=== PATIENT | male | born 1995 | race Caucasian/White ===

== ENCOUNTER 2020-02-28 06:28 | Outpatient (REF) | payer OTHER, SELFPAY ==
[2020-02-28 07:20] LABS: MANUAL DIFF FLAG NO
[2020-02-28 07:22] LABS: Basophils Percent Auto 1.1 % (0-2); Eosinophils Absolute Auto 0.1 X10*3/uL (0.0-0.4); Eosinophils Percent Auto 3.2 % (0-4); Hematocrit 44.9 % (42-52); Imm Gran Abs Auto 0.01 X10*3/uL (0.00-0.03); Imm Gran Pct Auto 0.3 % (0.0-0.4); Lymphocytes Absolute Auto 1.7 X10*3/uL (1.2-4.9); Lymphocytes Percent Auto 44.9 % (20-40); Mean Corpuscular HGB Conc 33.4 g/dl (31.0-36.0); Mean Corpuscular Hemoglobin 29.9 pg (27.0-33.0); Mean Corpuscular Volume 89.6 fL (80-98); Monocytes Absolute Auto 0.4 X10*3/uL (0.1-1.2); Monocytes Percent Auto 9.2 % (2-11); Neutrophils Absolute Auto 1.6 X10*3/uL (2.0-8.3); Neutrophils Percent Auto 41.3 % (45-73); Platelet Count 158 X10*3/uL (160-400); Red Blood Count 5.01 X10*6/uL (4.60-5.80); Red Cell Distribution Width 12.3 % (11.0-16.0); White Blood Count 3.8 X10*3/uL (4.8-10.8)
[2020-02-28 07:41] LABS: Alanine Aminotransferase 38 U/L (0-40); Albumin Level 4.2 g/dL (3.5-5.0); Alkaline Phosphatase 80 U/L (39-117); Anion Gap 12 (12-20); Aspartate Amino Transferase 22 U/L (5-37); Bilirubin Total 0.8 mg/dL (0.0-1.0); Blood Urea Nitrogen 17 mg/dL (9-16); Carbon Dioxide 28 mmol/L (22-29); Chloride 103 mmol/L (96-108); Cholesterol 226 mg/dL; Estimated Glomerular Filt Rate > 60; Glucose Fasting 87 mg/dL (60-99); HDL Cholesterol 69 mg/dL; LDL Cholesterol Calculated 145 mg/dl; Potassium 3.6 mmol/l (3.3-5.1); Sodium 139 mmol/L (135-145); Total Protein 7.1 g/dL (6.5-8.0); Triglycerides 60 mg/dL
[2020-02-28 07:55] LABS: TSH reflex Free T4 2.45 mIU/mL (0.32-4.0)
== END 2020-02-28 06:29 | disposition home or self-care (01) ==
LOC: HO.LAB 06:28
PROVIDERS: PCP Internal Medicine; Visit Provider Physician Assistant
DX: E78.9 Disorder of lipoprotein metabolism, unspecified (principal)
CPT/HCPCS: 36415; 80053; 80061; 84443; 85025

== ENCOUNTER 2021-02-14 15:12 | Outpatient (REF) | payer OTHER, SELFPAY ==
[2021-02-14 15:24] LABS: TSH reflex Free T4 1.28 uIU/mL (0.32-4.0)
== END 2021-02-14 15:13 | disposition home or self-care (01) ==
LOC: HO.LAB 15:12
PROVIDERS: Visit Provider Physician Assistant
DX: Z02.1 Encounter for pre-employment examination (principal); E78.9 Disorder of lipoprotein metabolism, unspecified
CPT/HCPCS: 36415; 84443

== ENCOUNTER 2022-09-17 08:04 | Outpatient (AMB) | payer OTHER, SELFPAY ==
[2022-09-17 08:16] VITALS: BP 122/70; PULSE 46; O2SAT 97; BMI 29.3
--- NOTE | 2022-09-17 08:16 | MHC.PC.OV ---
Vital Signs 09/17/22 08:16 Height 5 ft 11 in Weight 210 lb BMI 29.3 BP 122/70 Blood Pressure Location Lt brachial Position Sitting Pulse 46 L Pulse Source Pulse Oximeter Pulse Oximetry (%) 97 Oxygen Delivery Method Room Air Intake Visit Reasons: physical Allergies No Known Allergies Allergy (Verified 09/17/22 08:23) Medication List - Last Reconciled 09/17/22 by Alli Rice PA-C No Known Home Meds Tobacco use date assessed: 09/17/22 Dental Screening Dental Screen Date: 09/17/22 Did you have a dental visit in the last 12 months?: Yes Did you have a dental problem in the last 6 months where you did not have access to dental care?: No Was dental information given to patient?: Patient has dentist HPI physical HPI Details Asif is a 27year-old male here today for annual physical. ? Patient has no past medical history of? borderline cholesterol in March 2019. ?patient does show report he has a family history of high cholesterol.. Concern--> reports getting a work physical at work [employer] and was reported to have trace RBCs in urinalysis and a slightly low spirometry reading. Vaccine: UTD with Td, , UTD with COVID PFSH Surgical History No pertinent past surgical history Family History Father Hypertension Mother No problems noted. Maternal Uncle Prostate cancer Testicular cancer Social History (Updated 09/17/22 @ 08:27 by Alli Rcie PA-C) Housing: House Alcohol intake: current Alcohol intake frequency: holidays/special occasions only Patient Tobacco Use Status: Never used Tobacco Tobacco use type: Cigarette e-Cigarette/Vaping Use: Never Used Second Hand Smoke Exposure: No service: No Current occupational status: employed Current occupation: [email or web address] Cognitive needs: No Hearing needs: No Vision needs: No Questionnaire PHQ-9 Over the last 2 weeks, how often have you been bothered by any of the following problems? 1. Little interest or pleasure in doing things: not at all 2. Feeling down, depressed, or hopeless: not at all 3. Trouble falling or staying asleep, or sleeping too much: not at all 4. Feeling tired or having little energy: not at all 5. Poor appetite or overeating: not at all 6. Feeling bad about yourself - or that you are a failure or have let yourself or your family down: not at all 7. Trouble concentrating on things, such as reading the newspaper or watching television: not at all 8. Moving or speaking so slowly that other people could have noticed. Or the opposite - being so fidgety or restless that you have been moving around a lot more than usual: not at all 9. Thoughts that you would be better off or of hurting yourself in some way: not at all Total score: 0 Depression Screening Interpretation: Negative 53361 - PHQ-9 Billing: Yes Source: Developed by Drs. Amilcar Núñez, Cindy Hernández, Vik Mederos and colleagues, with an educational mari from [employer]. Thrive Questionnaire Date Thrive assessed: 09/17/22 I am a: Patient What is your living situation today?: I have a steady place to live Within the past 12 months, did the food you bought not last and you didn't have the money to get more?: Never true Within the past 12 months, did you worry whether your food would run out before you got money to buy more?: Never true Do you have trouble paying for medicines?: No Do you have trouble getting transportation to medical appointments?: No Do you have trouble paying your heating and electricity bill?: No Do you have trouble taking care of your child, family member or friend?: No Do you have trouble with day-to-day activities such as bathing, preparing meals, shopping, managing finances, etc.?: No Are you currently unemployed and looking for a job?: No Are you interested in more education?: No Currently or been in a relationship where the following occur: no concerns reported AUDIT C Alcohol Use Questionnaire (AUDIT-C) 1. How often do you have a drink containing alcohol?: Never Total Score: 0 PRIYA-7 AMB Questionnaire PRIYA-7 Date PRIYA - 7 assessed: 09/17/22 Feeling nervous, anxious, or on edge: 0 = Not at all Not being able to stop or control worryin = Not at all Worrying too much about different things: 0 = Not at all Trouble relaxin = Not at all Being so restless that it is hard to sit still: 0 = Not at all Becoming easily annoyed or irritable: 0 = Not at all Feeling afraid as if something awful might happen: 0 = Not at all Total PRIYA-7 score (0-4 normal; 5-9 mild; 10-14 moderate; 15-21 severe): 0 Source: Developed by Drs. Amilcar Núñez, Cindy Hernández, Vik Mederos and colleagues, with an educational mari from [employer]. PRIYA-7 Assessment Billing PRIYA-7 Assessment Tool: PRIYA-7 Assessment 44324 Review of Systems Const Denies body aches, Denies chills, Denies excessive sweating, Denies fatigue, Denies fever(s) and Denies headache(s) Eyes Denies blurry vision ENT Denies dysphagia, Denies vertigo, Denies dizziness, Denies headache(s), Denies hearing loss and Denies tinnitus Card Denies chest pain, Denies chest pain with activity, Denies syncope, Denies irregular heart rhythm and Denies dyspnea Resp Denies chest congestion, Denies cough, Denies hemoptysis, Denies dyspnea and Denies wheezing GI Denies abdominal pain, Denies melena, Denies hematochezia, Denies coffee ground emesis, Denies dysphagia, Denies diarrhea, Denies nausea and Denies vomiting Denies difficulty urinating, Denies dysuria, Denies urinary frequency, Denies urinary hesitancy and Denies urinary urgency Musc Denies arthralgias, Denies limited range of motion, Denies muscle cramps and Denies muscle weakness Skin/Breast Denies rash and Denies skin ulcer Neuro Denies Abnormal speech present, Denies confusion, Denies vertigo, Denies dizziness, Denies syncope, Denies headache(s), Denies memory loss and Denies seizure-like activity Psych Denies anxiety, Denies confusion, Denies depression, Denies memory loss, Denies panic attacks and Denies paranoia Endo Denies excessive sweating, Denies fatigue, Denies flushing, Denies polydipsia and Denies polyuria Aller/Immun Denies wheezing Physical exam (Primary Care) Vital Signs: Last Vital Signs Pulse 46 L 09/17/22 08:16 BP 122/70 09/17/22 08:16 Pulse Ox 97 09/17/22 08:16 Oxygen Delivery Method Room Air 09/17/22 08:16 BMI result Body Mass Index 29.3 Tobacco/Smoking Status: Tobacco use Status Tobacco use date assessed 09/17/22 09/17/22 08:21 Patient Tobacco Use Status Never used Tobacco 09/17/22 08:27 Tobacco use type Cigarette 09/17/22 08:27 e-Cigarette/Vaping Use Never Used 09/17/22 08:27 PHQ-9: PHQ-9 Score PHQ-9: Total score 0 09/17/22 08:38 Depression Screening Interpretation: Negative Thrive Assessment: Date of Thrive Assessment Date Thrive assessed 09/17/22 09/17/22 08:21 Currently or been in a relationship where the following occur: no concerns reported Const General: cooperative, comfortable, no acute distress, alert and awake; No confusion Orientation/consciousness: oriented to person, oriented to place, patient oriented x3 and No confusion HENMT Head: Yes normocephalic Ears: external ears normal and TM's normal bilaterally Face and sinus: No sinus tenderness Mouth: Normal oral and palatal mucosa present and tongue normal Teeth and gingiva: dentition normal and gingiva normal Throat: Yes posterior oropharynx normal, Yes tonsils normal and Yes uvula midline Eyes Conjunctivae: conjunctivae normal Sclerae: sclerae normal Pupils: Equal, round and reactive pupils present EOM: EOMs intact bilaterally Direct Ophthalmoscopy: No no photophobia Neck Neck: Yes no lymphadenopathy, No tender and Yes no JVD Thyroid: Thyroid normal Carotids: no bruits Chest Chest palpation & inspection: no tenderness Resp Effort & Inspection: normal respiratory effort, no audible wheezes, not labored and no stridor Auscultation: no crackles, no rales, no rhonchi and no wheezes Cardio Jugular venous distension: no JVD Rate: regular rate, not bradycardic and not tachycardic Rhythm: regular rhythm Bruits: no carotid bruits Peripheral pulses: Peripheral pulses 2+ throughout GI Inspection: Yes normal to inspection, No abdominal wall ecchymosis and No visible herniation Palpation (GI): Soft to palpation, nontender, no guarding, not rigid and No hepatosplenomegaly present Auscultation: normoactive bowel sounds General: Yes no CVA tenderness Back/Spine/Pelvis Back: no CVA tenderness and No back tenderness Cervical Spine: cervical ROM normal Thoracic/Lumbar Spine: thoracic and lumbar spine normal to inspection, straight leg raise negative bilaterally, No thoraco-lumbar ROM limited and No lumbar spinal tenderness Skin Lesions: no lesions Rashes: no rashes Wounds: no wounds Neuro General: oriented to person, oriented to place, patient oriented x3, CN's II-XI intact bilaterally and No confusion Cranial nerves: Yes Equal, round and reactive pupils present and Yes Normal accommodation reflex present Cognition (Neuro): normal cognition Speech: No Abnormal speech present Gait exam (Neuro): Normal gait present Motor exam (neuro): 5/5 motor strength present throughout Extrem Right upper extremity: full ROM; no cyanosis Left upper extremity: full ROM; no cyanosis Right lower extremity: no edema Left lower extremity: no edema Psych Appearance: grossly normal Mental Status: mental status grossly normal Affect: normal affect Attitude: cooperative Thought process: Normal thought process present Assessment and Plan Assessment & Plan (1) Annual physical exam: Code(s): Z00.00 - Encounter for general adult medical examination without abnormal findings (2) Borderline high cholesterol: Code(s): E78.9 - Disorder of lipoprotein metabolism, unspecified Plan: Patient has a history of borderline high cholesterol. Will recheck fasting lipids to ensure appropriate total cholesterol and LDL. (3) Screening for diabetes mellitus (DM): Code(s): Z13.1 - Encounter for screening for diabetes mellitus (4) Microscopic hematuria: Code(s): R31.29 - Other microscopic hematuria Plan: Was found to trace RBCs in urinalysis at [facility] [employer]. Will recheck urinalysis and urine cytology Orders: Orders Lipid Panel Today E78.9 - Disorder of lipoprotein metabolism, unspecified Comprehensive [place]. Panel Fast Today Z13.1 - Encounter for screening for diabetes mellitus UA CC w/rflx Micro + Cult Today R30.0 - Dysuria, R31.29 - Other microscopic hematuria Urine Cytology Today R31.29 - Other microscopic hematuria Coding Level of Care Code Est Pt Prev Care 18-39y(56507) Diagnoses Annual physical exam Z00.00 Borderline high cholesterol E78.9 Screening for diabetes mellitus (DM) Z13.1 Microscopic hematuria R31.29 Additional Codes PRIYA-7 Assessment Billing - PRIYA-7 Assessment Tool: PRIYA-7 Assessment [id number] ([id number])
== END 2022-09-17 08:40 | disposition home or self-care (01) ==
PROVIDERS: Visit Provider Physician Assistant
DX: Z00.00 Encounter for general adult medical examination without abnormal findings (principal); E78.9 Disorder of lipoprotein metabolism, unspecified; Z13.1 Encounter for screening for diabetes mellitus; R31.29 Other microscopic hematuria
CPT/HCPCS: 99395

== ENCOUNTER 2023-01-03 06:53 | Outpatient (REF) | payer OTHER, SELFPAY ==
[2023-01-03 07:50] LABS: Alanine Aminotransferase 45 U/L (0-40); Albumin Level 4.2 g/dL (3.5-5.0); Alkaline Phosphatase 85 U/L (39-117); Anion Gap 12 (12-20); Aspartate Amino Transferase 29 U/L (5-37); Bilirubin Total 0.8 mg/dL (0.0-1.0); Blood Urea Nitrogen 16 mg/dL (9-16); Calcium 9.4 mg/dL (8.4-10.2); Carbon Dioxide 25 mmol/L (22-29); Chloride 105 mmol/L (96-108); Cholesterol 193 mg/dL (<200); Estimated Glomerular Filt Rate > 60; Glucose Fasting 92 mg/dL (60-99); HDL Cholesterol 61 mg/dL (>40); LDL Cholesterol Calculated 126 mg/dL (<100); Potassium 3.7 mmol/L (3.3-5.1); Sodium 138 mmol/L (135-145); Total Protein 7.3 g/dL (6.5-8.0); Triglycerides 34 mg/dL (<150)
[2023-01-03 08:15] LABS: Urine Cytology See Pathology rpt
[2023-01-03 08:28] LABS: Appearance Urine Clear; Color Urine Yellow; Glucose Urine UA Negative (Negative); Leukocyte Esterase Urine Negative (Negative); Nitrite Urine Negative (Negative); Urine Blood Negative (Negative); Urine Ketones Negative (Negative); Urine Protein Negative (Neg-Trace)
== END 2023-01-03 06:54 | disposition home or self-care (01) ==
LOC: HO.LAB 06:53
PROVIDERS: PCP Physician Assistant; Visit Provider Physician Assistant
DX: Z13.1 Encounter for screening for diabetes mellitus (principal); R30.0 Dysuria; R31.29 Other microscopic hematuria; E78.9 Disorder of lipoprotein metabolism, unspecified
CPT/HCPCS: 36415; 80053; 80061; 81003; 88112

== ENCOUNTER 2023-09-22 07:53 | Outpatient (AMB) | payer OTHER, SELFPAY ==
--- NOTE | 2023-09-22 07:54 | MHC.PC.OV ---
Vital Signs 09/22/23 07:55 Height 5 ft 11 in Weight 210 lb BMI 29.3 BP 108/70 Blood Pressure Location Lt brachial Position Sitting Pulse 47 L Pulse Source Pulse Oximeter Pulse Oximetry (%) 99 Oxygen Delivery Method Room Air Intake Visit Reasons: Annual Allergies No Known Allergies Allergy (Verified 09/22/23 08:02) Medication List - Last Reconciled 09/22/23 by Alli Rice PA-C No Known Home Meds Tobacco use date assessed: 09/22/23 Dental Screening Dental Screen Date: 09/22/23 Did you have a dental visit in the last 12 months?: Yes Did you have a dental problem in the last 6 months where you did not have access to dental care?: No Was dental information given to patient?: Patient has dentist HPI Annual HPI Details Asif is a 28 year-old male here today for annual physical. ? Patient has no past medical history of? borderline cholesterol in March 2019. Recently had a new baby girl and now has a father of 2. ?History of borderline high cholesterol: patient does show report he has a family history of high cholesterol.. 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 He is willing to try topical steroid. Vaccine: UTD with Td, , UTD with COVID Laboratory Tests 04/08/19 02/28/20 02/14/21 06:15 06:38 07:54 Cholesterol 225 226 TSH 1.28 01/03/23 07:04 Cholesterol 193 TSH PFSH Surgical History No pertinent past surgical history Family History Father Hypertension Mother No problems noted. Maternal Uncle Prostate cancer Testicular cancer Social History Housing: House Alcohol intake: current Alcohol intake frequency: holidays/special occasions only Patient Tobacco Use Status: Never used Tobacco Tobacco use type: Cigarette e-Cigarette/Vaping Use: Never Used Second Hand Smoke Exposure: No service: No Current occupational status: employed Current occupation: [employer]- [employer] Cognitive needs: No Hearing needs: No Vision needs: No Questionnaire PHQ-9 Over the last 2 weeks, how often have you been bothered by any of the following problems? 1. Little interest or pleasure in doing things: not at all 2. Feeling down, depressed, or hopeless: not at all 3. Trouble falling or staying asleep, or sleeping too much: not at all 4. Feeling tired or having little energy: not at all 5. Poor appetite or overeating: not at all 6. Feeling bad about yourself - or that you are a failure or have let yourself or your family down: not at all 7. Trouble concentrating on things, such as reading the newspaper or watching television: not at all 8. Moving or speaking so slowly that other people could have noticed. Or the opposite - being so fidgety or restless that you have been moving around a lot more than usual: not at all 9. Thoughts that you would be better off or of hurting yourself in some way: not at all Total score: 0 Depression Screening Interpretation: Negative Depression Screening Done: Yes 34994 - PHQ-9 Billing: Yes Source: Developed by Drs. Amilcar Núñez, Cindy Hernández, Vik Mederos and colleagues, with an educational mari from [employer]now [employer]). Thrive Questionnaire Date Thrive assessed: 09/22/23 I am a: Patient What is your living situation today?: I have a steady place to live Within the past 12 months, did the food you bought not last and you didn't have the money to get more?: Never true Within the past 12 months, did you worry whether your food would run out before you got money to buy more?: Never true Do you have trouble paying for medicines?: No Do you have trouble getting transportation to medical appointments?: No Do you have trouble paying your heating and electricity bill?: No Do you have trouble taking care of your child, family member or friend?: No Do you have trouble with day-to-day activities such as bathing, preparing meals, shopping, managing finances, etc.?: No Are you currently unemployed and looking for a job?: No Are you interested in more education?: No Currently or been in a relationship where the following occur: No concerns reported THRIVE Score: 0 AUDIT C Alcohol Use Questionnaire (AUDIT-C) 1. How often do you have a drink containing alcohol?: Never Total Score: 0 PRIYA-7 AMB Questionnaire PRIYA-7 Date PRIYA - 7 assessed: 09/22/23 Feeling nervous, anxious, or on edge: 0 = Not at all Not being able to stop or control worryin = Not at all Worrying too much about different things: 0 = Not at all Trouble relaxin = Not at all Being so restless that it is hard to sit still: 0 = Not at all Becoming easily annoyed or irritable: 0 = Not at all Feeling afraid as if something awful might happen: 0 = Not at all Total PRIYA-7 score (0-4 normal; 5-9 mild; 10-14 moderate; 15-21 severe): 0 Source: Developed by Drs. Amilcar Núñez, Cindy Hernández, Vik Mederos and colleagues, with an educational mari from [employer] (now [employer]). PRIYA-7 Assessment Billing PRIYA-7 Assessment Tool: PRIYA-7 Assessment 78799 Review of Systems Const Denies body aches, Denies chills, Denies excessive sweating, Denies fatigue, Denies fever(s) and Denies headache(s) Eyes Denies blurry vision ENT Denies dysphagia, Denies vertigo, Denies dizziness, Denies headache(s), Denies hearing loss and Denies tinnitus Card Denies chest pain, Denies chest pain with activity, Denies syncope, Denies irregular heart rhythm and Denies dyspnea Resp Denies chest congestion, Denies cough, Denies hemoptysis, Denies dyspnea and Denies wheezing GI Denies abdominal pain, Denies melena, Denies hematochezia, Denies coffee ground emesis, Denies dysphagia, Denies diarrhea, Denies nausea and Denies vomiting Denies difficulty urinating, Denies dysuria, Denies urinary frequency, Denies urinary hesitancy and Denies urinary urgency Musc Denies arthralgias, Denies limited range of motion, Denies muscle cramps and Denies muscle weakness Skin/Breast Denies rash and Denies skin ulcer Neuro Denies Abnormal speech present, Denies confusion, Denies vertigo, Denies dizziness, Denies syncope, Denies headache(s), Denies memory loss and Denies seizure-like activity Psych Denies anxiety, Denies confusion, Denies depression, Denies memory loss, Denies panic attacks and Denies paranoia Endo Denies excessive sweating, Denies fatigue, Denies flushing, Denies polydipsia and Denies polyuria Aller/Immun Denies wheezing Physical exam (Primary Care) Vital Signs: Last Vital Signs Pulse 47 L 09/22/23 07:55 BP 108/70 09/22/23 07:55 Pulse Ox 99 09/22/23 07:55 Oxygen Delivery Method Room Air 09/22/23 07:55 BMI result Body Mass Index 29.3 Tobacco/Smoking Status: Tobacco use Status Tobacco use date assessed 09/22/23 09/22/23 08:01 Patient Tobacco Use Status Never used Tobacco 09/22/23 08:01 Tobacco use type Cigarette 09/22/23 08:01 e-Cigarette/Vaping Use Never Used 09/22/23 08:01 PHQ-9: PHQ-9 Score PHQ-9: Total score 0 09/22/23 08:06 Depression Screening Interpretation: Negative Thrive Assessment: Date of Thrive Assessment Date Thrive assessed 09/22/23 09/22/23 08:01 Currently or been in a relationship where the following occur: No concerns reported Const General: cooperative, comfortable, no acute distress, alert and awake; No confusion Orientation/consciousness: oriented to person, oriented to place, patient oriented x3 and No confusion HENMT Head: Yes normocephalic Ears: external ears normal and TM's normal bilaterally Face and sinus: No sinus tenderness Mouth: Normal oral and palatal mucosa present and tongue normal Teeth and gingiva: dentition normal and gingiva normal Throat: Yes posterior oropharynx normal, Yes tonsils normal and Yes uvula midline Eyes Conjunctivae: conjunctivae normal Sclerae: sclerae normal Pupils: Equal, round and reactive pupils present EOM: EOMs intact bilaterally Direct Ophthalmoscopy: No no photophobia Neck Neck: Yes no lymphadenopathy, No tender and Yes no JVD Thyroid: Thyroid normal Carotids: no bruits Chest Chest palpation & inspection: no tenderness Resp Effort & Inspection: normal respiratory effort, no audible wheezes, not labored and no stridor Auscultation: no crackles, no rales, no rhonchi and no wheezes Cardio Jugular venous distension: no JVD Rate: regular rate, not bradycardic and not tachycardic Rhythm: regular rhythm Bruits: no carotid bruits Peripheral pulses: Peripheral pulses 2+ throughout GI Inspection: Yes normal to inspection, No abdominal wall ecchymosis and No visible herniation Palpation (GI): Soft to palpation, nontender, no guarding, not rigid and No hepatosplenomegaly present Auscultation: normoactive bowel sounds General: Yes no CVA tenderness Back/Spine/Pelvis Back: no CVA tenderness and No back tenderness Cervical Spine: cervical ROM normal Thoracic/Lumbar Spine: thoracic and lumbar spine normal to inspection, straight leg raise negative bilaterally, No thoraco-lumbar ROM limited and No lumbar spinal tenderness Skin Lesions: no lesions Rashes: no rashes Wounds: no wounds Neuro General: oriented to person, oriented to place, patient oriented x3, CN's II-XI intact bilaterally and No confusion Cranial nerves: Yes Equal, round and reactive pupils present and Yes Normal accommodation reflex present Cognition (Neuro): normal cognition Speech: No Abnormal speech present Gait exam (Neuro): Normal gait present Motor exam (neuro): 5/5 motor strength present throughout Extrem Right upper extremity: full ROM; no cyanosis Left upper extremity: full ROM; no cyanosis Right lower extremity: no edema Left lower extremity: no edema Psych Appearance: grossly normal Mental Status: mental status grossly normal Affect: normal affect Attitude: cooperative Thought process: Normal thought process present Assessment and Plan Assessment & Plan (1) Annual physical exam: Code(s): Z00.00 - Encounter for general adult medical examination without abnormal findings (2) Borderline high cholesterol: Code(s): E78.9 - Disorder of lipoprotein metabolism, unspecified Plan: Patient has a history of borderline high cholesterol. Will recheck fasting lipids to ensure appropriate total cholesterol and LDL. (3) Screening for diabetes mellitus (DM): Code(s): Z13.1 - Encounter for screening for diabetes mellitus (4) Microscopic hematuria: Code(s): R31.29 - Other microscopic hematuria Plan: Was found to trace RBCs in urinalysis at work [employer]. 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 Will supply him with topical triamcinolone ointment Orders: Orders Comprehensive [place]. Panel Fast Today Z13.1 - Encounter for screening for diabetes mellitus UA CC w/rflx Micro + Cult Today R30.0 - Dysuria, R31.29 - Other microscopic hematuria Lipid Panel Today E78.9 - Disorder of lipoprotein metabolism, unspecified Complete Blood Count no Diff Today E78.9 - Disorder of lipoprotein metabolism, unspecified Urine Cytology Today R31.29 - Other microscopic hematuria Medications: New triamcinolone acetonide 0.1% 1 appl topical DAILY 30 grams 1RF 15 days Q82.4 - Ectodermal dysplasia (anhidrotic) Coding Level of Care Code Est Pt Prev Care 18-39y(73488) Diagnoses Annual physical exam Z00.00 Borderline high cholesterol E78.9 Screening for diabetes mellitus (DM) Z13.1 Microscopic hematuria R31.29 Hidrotic ectodermal dysplasia Q82.4 Additional Codes PRIYA-7 Assessment Billing - PRIYA-7 Assessment Tool: PRIYA-7 Assessment 51585 ([id number])
[2023-09-22 07:55] VITALS: BP 108/70; PULSE 47; O2SAT 99; BMI 29.3
== END 2023-09-22 08:21 | disposition home or self-care (01) ==
PROVIDERS: PCP Internal Medicine; Visit Provider Physician Assistant
DX: Z00.00 Encounter for general adult medical examination without abnormal findings (principal); E78.9 Disorder of lipoprotein metabolism, unspecified; Z13.1 Encounter for screening for diabetes mellitus; R31.29 Other microscopic hematuria; Q82.4 Ectodermal dysplasia (anhidrotic)
CPT/HCPCS: 99395

== ENCOUNTER 2024-09-28 08:01 | Outpatient (REF) | payer OTHER, SELFPAY ==
--- OUTSIDE RECORDS SUMMARY | 2024-09-28 08:05 | XMS_ITS | Encounter Summary ---
Author Organization [facility] Address [address] [place] [id number] Phone Care Team Providers Care Family Development Specialist Name Role Phone Abram Shaikh MD Primary Care Provider Unavailabl e Encounter Details Date Type Department Care Team (Late st Contact Info) Description 10/24/2016 Conversion Encounter [facility] - [address] [id number] Social History Tobacco Use Types Packs/Day Years Used Date Smoking Tobacco: Never Assessed Sex and Gender Information Value Date Recorded Sex Assigned at Not on file Legal Sex Male 4:40 PM EDT Gender Identity Not on file Sexual Orientation Not on file documented as of this encounter Plan of Treatment Not on file documented as of this encounter Visit Diagnoses Not on filedocumented in this encounter Care Teams Family Development Specialist Relationship Specialty Start Date End Date Abram Shaikh MD PCP - General 10/18/16 documented as of this encounter
[2024-09-28 08:49] LABS: Hematocrit 45.4 % (42.0-52.0); Hemoglobin 15.4 g/dl (14.0-18.0); Mean Corpuscular HGB Conc 33.9 g/dl (31.0-36.0); Mean Corpuscular Hemoglobin 29.6 pg (27.0-33.0); Mean Corpuscular Volume 87.1 fL (80.0-98.0); NRBC Abs Auto 0.000 X10*3/uL (0.0-0.012); NRBC Pct Auto 0.0 /100WBC (0.0-0.2); Platelet Count 156 X10*3/uL (160-400); Red Blood Count 5.21 X10*6/uL (4.60-5.80); White Blood Count 3.9 X10*3/uL (4.8-10.8)
[2024-09-28 08:51] LABS: Appearance Urine Clear; Glucose Urine UA Negative (Negative); PH 7.0 (5.0-9.0); Specific Gravity - Urine <= 1.005 (1.005-1.025)
[2024-09-28 09:14] LABS: Alanine Aminotransferase 32 U/L (0-40); Albumin Level 4.5 g/dL (3.5-5.0); Alkaline Phosphatase 85 U/L (39-117); Anion Gap 11 (12-20); Aspartate Amino Transferase 28 U/L (5-37); Blood Urea Nitrogen 17 mg/dL (9-16); Calcium 9.0 mg/dL (8.4-10.2); Carbon Dioxide 27 mmol/L (22-29); Chloride 105 mmol/L (96-108); Cholesterol 209 mg/dL (<200); Estimated Glomerular Filt Rate > 60; HDL Cholesterol 62 mg/dL (>40); Potassium 4.0 mmol/L (3.3-5.1); Sodium 139 mmol/L (135-145); Total Protein 7.6 g/dL (6.5-8.0); Triglycerides 44 mg/dL (<150)
== END 2024-09-28 08:02 | disposition home or self-care (01) ==
LOC: HO.LAB 08:01
PROVIDERS: PCP Physician Assistant; Visit Provider Physician Assistant
DX: R30.0 Dysuria (principal); E78.9 Disorder of lipoprotein metabolism, unspecified; Z13.1 Encounter for screening for diabetes mellitus; R31.29 Other microscopic hematuria
CPT/HCPCS: 36415; 80053; 80061; 81003; 85027

== ENCOUNTER 2024-09-29 07:58 | Outpatient (AMB) | payer OTHER, SELFPAY ==
[2024-09-29 08:02] VITALS: BP 124/68; PULSE 55; RESP 18; TEMP 36.1; O2SAT 98; BMI 30.1
--- NOTE | 2024-09-29 08:02 | MHC.PC.OV ---
Vital Signs 09/29/24 08:02 Height 5 ft 11 in Weight 216 lb BMI 30.1 BP 124/68 Blood Pressure Location Lt brachial Position Sitting Respiration 18 Pulse 55 Pulse Source Pulse Oximeter Temp 97.0 F Temp Source Temporal Artery Scan Pulse Oximetry (%) 98 Oxygen Delivery Method Room Air Intake Visit Reasons: PE R/S from 09/23/24 Allergies No Known Allergies Allergy (Verified 09/29/24 08:08) Medication List - Last Reconciled 09/29/24 by Alli Rice PA-C triamcinolone acetonide 0.1% 1 appl topical DAILY 15 days Tobacco use date assessed: 09/29/24 Dental Screening Dental Screen Date: 09/29/24 Did you have a dental visit in the last 12 months?: Yes Did you have a dental problem in the last 6 months where you did not have access to dental care?: No Was dental information given to patient?: Patient has dentist HPI PE R/S from 09/23/24 HPI Details Asif is a 29 year-old male here today for annual physical. ? Patient has no past medical history of? borderline cholesterol in March 2019. Concern--> The patient also reports a recurrent wart, for which he has tried tgga-lih-[id number] treatments without success. He has a pending appointment with a salesperson men's furnishings, but previous appointments have been canceled. 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 He is interested in getting vitamin levels in lab workup has a baseline. . ?History of borderline high cholesterol: patient does show report he has a family history of high cholesterol.. .. Leukopenia: Noted leukopenia over last few years, he denies any recurrent infections. Hand dermatitis: Has developed eczema over his hands which gets worse with exposure to water. He does use topical steroid from time to time which does reduce his eczema on his hands. Vaccine: UTD with Td, UTD with COVID Laboratory Tests 02/28/20 09/28/24 06:38 08:14 WBC 3.8 L 3.9 L Plt Count 158 L 156 L Creatinine 0.97 Cholesterol 209 H LDL Cholesterol, C alc 139 H PFSH Surgical History No pertinent past surgical history Family History Father Hypertension Mother No problems noted. Maternal Uncle Prostate cancer Testicular cancer Social History Housing: House Alcohol intake: current Alcohol intake frequency: holidays/special occasions only Patient Tobacco Use Status: Never used Tobacco Tobacco use type: Cigarette e-Cigarette/Vaping Use: Never Used Second Hand Smoke Exposure: No service: No Current occupational status: employed Current occupation: [employer] Cognitive needs: No Hearing needs: No Vision needs: No Questionnaire PHQ-9 Over the last 2 weeks, how often have you been bothered by any of the following problems? 1. Little interest or pleasure in doing things: not at all 2. Feeling down, depressed, or hopeless: not at all 3. Trouble falling or staying asleep, or sleeping too much: not at all 4. Feeling tired or having little energy: not at all 5. Poor appetite or overeating: not at all 6. Feeling bad about yourself - or that you are a failure or have let yourself or your family down: not at all 7. Trouble concentrating on things, such as reading the newspaper or watching television: not at all 8. Moving or speaking so slowly that other people could have noticed. Or the opposite - being so fidgety or restless that you have been moving around a lot more than usual: not at all 9. Thoughts that you would be better off or of hurting yourself in some way: not at all Total score: 0 Depression Screening Interpretation: Negative Depression Screening Done: Yes 66461 - PHQ-9 Billing: Yes Source: Developed by Drs. Amilcar Núñez, Cindy Hernández, Vik Mederos and colleagues, with an educational mari from [employer]. Thrive Questionnaire Date Thrive assessed: 09/29/24 I am a: Patient What is your living situation today?: I have a steady place to live Within the past 12 months, did the food you bought not last and you didn't have the money to get more?: Never true Within the past 12 months, did you worry whether your food would run out before you got money to buy more?: Never true Do you have trouble paying for medicines?: No Do you have trouble getting transportation to medical appointments?: No Do you have trouble paying your heating and electricity bill?: No Do you have trouble taking care of your child, family member or friend?: No Do you have trouble with day-to-day activities such as bathing, preparing meals, shopping, managing finances, etc.?: No Are you currently unemployed and looking for a job?: No Are you interested in more education?: No Currently or been in a relationship where the following occur: No concerns reported THRIVE Score: 0 AUDIT C Alcohol Use Questionnaire (AUDIT-C) 1. How often do you have a drink containing alcohol?: Never 3. How often do you have six or more drinks on one occasion?: Never Total Score: 0 PRIYA-7 AMB Questionnaire PRIYA-7 Date PRIYA - 7 assessed: 09/29/24 Feeling nervous, anxious, or on edge: 0 = Not at all Not being able to stop or control worryin = Not at all Worrying too much about different things: 0 = Not at all Trouble relaxin = Not at all Being so restless that it is hard to sit still: 0 = Not at all Becoming easily annoyed or irritable: 0 = Not at all Feeling afraid as if something awful might happen: 0 = Not at all Total PRIYA-7 score (0-4 normal; 5-9 mild; 10-14 moderate; 15-21 severe): 0 Source: Developed by Drs. Amilcar Núñez, Cindy Hernández, Vik Mederos and colleagues, with an educational mari from [employer]. PRIYA-7 Assessment Billing PRIYA-7 Assessment Tool: PRIYA-7 Assessment 30535 Review of Systems Const Denies body aches, Denies chills, Denies excessive sweating, Denies fatigue, Denies fever(s) and Denies headache(s) Eyes Denies blurry vision ENT Denies dysphagia, Denies vertigo, Denies dizziness, Denies headache(s), Denies hearing loss and Denies tinnitus Card Denies chest pain, Denies chest pain with activity, Denies syncope, Denies irregular heart rhythm and Denies dyspnea Resp Denies chest congestion, Denies cough, Denies hemoptysis, Denies dyspnea and Denies wheezing GI Denies abdominal pain, Denies melena, Denies hematochezia, Denies coffee ground emesis, Denies dysphagia, Denies diarrhea, Denies nausea and Denies vomiting Denies difficulty urinating, Denies dysuria, Denies urinary frequency, Denies urinary hesitancy and Denies urinary urgency Musc Denies arthralgias, Denies limited range of motion, Denies muscle cramps and Denies muscle weakness Skin/Breast Denies rash and Denies skin ulcer Neuro Denies Abnormal speech present, Denies confusion, Denies vertigo, Denies dizziness, Denies syncope, Denies headache(s), Denies memory loss and Denies seizure-like activity Psych Denies anxiety, Denies confusion, Denies depression, Denies memory loss, Denies panic attacks and Denies paranoia Endo Denies excessive sweating, Denies fatigue, Denies flushing, Denies polydipsia and Denies polyuria Aller/Immun Denies wheezing Physical exam (Primary Care) Vital Signs: Last Vital Signs Temp 97.0 F 09/29/24 08:02 Pulse 55 09/29/24 08:02 Resp 18 09/29/24 08:02 BP 124/68 09/29/24 08:02 Pulse Ox 98 09/29/24 08:02 Oxygen Delivery Method Room Air 09/29/24 08:02 BMI result Body Mass Index 30.1 BMI Assessment/Plan discussion: High BMI High, discussed plan: lifestyle, weight reduction, dietary and physical activity Tobacco/Smoking Status: Tobacco use Status Tobacco use date assessed 09/29/24 09/29/24 08:06 Patient Tobacco Use Status Never used Tobacco 09/29/24 08:03 Tobacco use type Cigarette 09/29/24 08:03 e-Cigarette/Vaping Use Never Used 09/29/24 08:03 PHQ-9: PHQ-9 Score PHQ-9: Total score 0 09/29/24 08:11 Depression Screening Interpretation: Negative Thrive Assessment: Date of Thrive Assessment Date Thrive assessed 09/29/24 09/29/24 08:06 Currently or been in a relationship where the following occur: No concerns reported Const General: cooperative, comfortable, no acute distress, alert and awake; No confusion Orientation/consciousness: oriented to person, oriented to place, patient oriented x3 and No confusion HENMT Head: Yes normocephalic Ears: external ears normal and TM's normal bilaterally Face and sinus: No sinus tenderness Mouth: Normal oral and palatal mucosa present and tongue normal Teeth and gingiva: dentition normal and gingiva normal Throat: Yes posterior oropharynx normal, Yes tonsils normal and Yes uvula midline Eyes Conjunctivae: conjunctivae normal Sclerae: sclerae normal Pupils: Equal, round and reactive pupils present EOM: EOMs intact bilaterally Direct Ophthalmoscopy: No no photophobia Neck Neck: Yes no lymphadenopathy, No tender and Yes no JVD Thyroid: Thyroid normal Carotids: no bruits Chest Chest palpation & inspection: no tenderness Resp Effort & Inspection: normal respiratory effort, no audible wheezes, not labored and no stridor Auscultation: no crackles, no rales, no rhonchi and no wheezes Cardio Jugular venous distension: no JVD Rate: regular rate, not bradycardic and not tachycardic Rhythm: regular rhythm Bruits: no carotid bruits Peripheral pulses: Peripheral pulses 2+ throughout GI Inspection: Yes normal to inspection, No abdominal wall ecchymosis and No visible herniation Palpation (GI): Soft to palpation, nontender, no guarding, not rigid and No hepatosplenomegaly present Auscultation: normoactive bowel sounds General: Yes no CVA tenderness Back/Spine/Pelvis Back: no CVA tenderness and No back tenderness Cervical Spine: cervical ROM normal Thoracic/Lumbar Spine: thoracic and lumbar spine normal to inspection, straight leg raise negative bilaterally, No thoraco-lumbar ROM limited and No lumbar spinal tenderness Skin Lesions: no lesions Rashes: no rashes Wounds: no wounds Neuro General: oriented to person, oriented to place, patient oriented x3, CN's II-XI intact bilaterally and No confusion Cranial nerves: Yes Equal, round and reactive pupils present and Yes Normal accommodation reflex present Cognition (Neuro): normal cognition Speech: No Abnormal speech present Gait exam (Neuro): Normal gait present Motor exam (neuro): 5/5 motor strength present throughout Extrem Right upper extremity: full ROM; no cyanosis Left upper extremity: full ROM; no cyanosis Right lower extremity: no edema Left lower extremity: no edema Psych Appearance: grossly normal Mental Status: mental status grossly normal Affect: normal affect Attitude: cooperative Thought process: Normal thought process present Coding Level of Care Code Est Pt Prev Care 18-39y(04438) Diagnoses Annual physical exam Z00.00 Verruca B07.9 Passive smoke exposure Z77.22 Borderline high cholesterol E78.9 Class 1 obesity E66.811 Additional Codes PRIYA-7 Assessment Billing - PRIYA-7 Assessment Tool: PRIYA-7 Assessment 55411 ([id number]) PHQ-9 - 61985 - PHQ-9 Billing: Yes ([id number]) Assessment & Plan Assessment & Plan (1) Annual physical exam: Code(s): Z00.00 - Encounter for general adult medical examination without abnormal findings Category: Medical Plan: As per HPI (2) Verruca: Code(s): B07.9 - Viral wart, unspecified Category: Medical Plan: Has a verruca over his hand has tried liquid nitrogen and [id number] topical treatments to have not been effective. Will supply patient with topical cream to use over the next 4 week to see if this is resolved since hand verruca He does have an upcoming appointment with salesperson men's furnishings in November 2024 (3) Passive smoke exposure: Code(s): Z77.22 - Contact with and (suspected) exposure to environmental tobacco smoke (acute) (chronic) Category: Social Hx Plan: Patient has been working has a [employer] over the last 4 years. 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 Patient does report family history high cholesterol. Patient will work on lifestyle to reduce his cholesterol panel. (5) Class 1 obesity: Code(s): E66.811 - Obesity, class 1 Category: Medical Plan: Patient does understand his BMI is over 30 will work on being more physically active and adapting to better eating habits to reduce his weight Orders: Orders Lipid Panel 09/29/24 E78.9 - Disorder of lipoprotein metabolism, unspecified Complete Blood Count no Diff 09/29/24 E78.9 - Disorder of lipoprotein metabolism, unspecified Comprehensive [place]. Panel Fast 09/29/24 E78.9 - Disorder of lipoprotein metabolism, unspecified Vitamin A 09/29/24 Z77.22 - Contact with and (suspected) exposure to environmental tobacco smoke (acute) (chronic) Vitamin B1 09/29/24 Z77.22 - Contact with and (suspected) exposure to environmental tobacco smoke (acute) (chronic) Vitamin C 09/29/24 Z77. - Contact with and (suspected) exposure to environmental tobacco smoke (acute) (chronic) Vitamin B12 and Folate 09/29/24 E53.8 - Deficiency of other specified B group vitamins, - Contact with and (suspected) exposure to environmental tobacco smoke (acute) (chronic) Vitamin D 25-OH Total 09/29/24 - Contact with and (suspected) exposure to environmental tobacco smoke (acute) (chronic) TSH reflex Free T4 09/29/24 - Contact with and (suspected) exposure to environmental tobacco smoke (acute) (chronic) Vitamin B3 (Niacin) 09/29/24 Z77. - Contact with and (suspected) exposure to environmental tobacco smoke (acute) (chronic) Vitamin E 09/29/24 Z77 - Contact with and (suspected) exposure to environmental tobacco smoke (acute) (chronic) Medications: New fluorouracil 5% 1 appl topical BID 40 grams 0RF 4 weeks B07.9 - Viral wart, unspecified
--- OUTSIDE RECORDS SUMMARY | 2024-09-29 08:03 | XMS_ITS | Encounter Summary ---
Author Organization [facility] Address [address] [place] [phone] Phone Care Team Providers Care Catalog Library Assistant Name Role Phone Abram Shaikh MD Primary Care Provider Unavailabl e Encounter Details Date Type Department Care Team (Late st Contact Info) Description 10/24/2016 Conversion Encounter [facility] - [address] [address] Social History Tobacco Use Types Packs/Day Years [...] on filedocumented in this encounter Care Teams Catalog Library Assistant Relationship Specialty Start Date End Date Abram Shaikh MD PCP - General 10/18/16 documented as of this encounter
== END 2024-09-29 08:33 | disposition home or self-care (01) ==
LOC: HO.HMCH 07:59
PROVIDERS: PCP Physician Assistant; Visit Provider Physician Assistant
DX: Z00.00 Encounter for general adult medical examination without abnormal findings (principal); E66.811 Obesity, class 1; Z68.41 Body mass index [BMI] 40.0-44.9, adult; B07.9 Viral wart, unspecified; Z77.22 Contact with and (suspected) exposure to environmental tobacco smoke (acute) (chronic); E78.9 Disorder of lipoprotein metabolism, unspecified

== ENCOUNTER → 2024-09-29 07:58 | Outpatient (BNVA) | payer OTHER, SELFPAY | PROVIDERS: PCP Physician Assistant; Visit Provider Physician Assistant | DX: Z00.00 Encounter for general adult medical examination without abnormal findings (principal); L30.9 Dermatitis, unspecified; B07.9 Viral wart, unspecified; E78.9 Disorder of lipoprotein metabolism, unspecified; E66.811 Obesity, class 1; Z68.30 Body mass index [BMI] 30.0-30.9, adult; Z77.22 Contact with and (suspected) exposure to environmental tobacco smoke (acute) (chronic) | CPT/HCPCS: 96127 ==